=== PATIENT | male | born 1940 | race Caucasian/White ===

== ENCOUNTER 2021-10-16 10:25 | Emergency (ER) | payer MEDICARE, OTHER ==
[~2021-10-16 10:25] MED LIST: Sodium Chloride 0.9% 100 ML BAG ONE
[2021-10-16 11:31] LABS: ALT (SGPT) 39 U/L (8-55); AST (SGOT) 25 U/L (5-34); Albumin 4.1 g/dL (3.4-4.8); Alkaline Phosphatase 84 U/L (40-110); Anion Gap 12 mmol/L (10-20); BUN (Urea Nitrogen) 19 mg/dL (8.4-25.7); Bilirubin, Total 0.5 mg/dL (0.2-1.2); Calc. Creatinine Clearance 0 mL/min (70-130); Calcium 8.8 mg/dL (7.8-10.44); Carbon Dioxide 27 mmol/L (23-31); Chloride 105 mmol/L (98-107); Globulin 2.9 g/dL (2.4-3.5); Glucose 90 mg/dL (83-110); Magnesium 1.8 mg/dL (1.6-2.6); Potassium 4.1 mmol/L (3.5-5.1); Sodium 140 mmol/L (136-145)
[2021-10-16 11:32] LABS: Band 8 % (5-11); Eosinophils 2 % (0-10); Hemoglobin 14.9 g/dL (14.0-18.0); Lymphocytes 20 % (21-51); MDiff Complete? YES; Mean Corpuscular HGB CONC 32.2 g/dL (32.0-36.0); Mean Corpuscular Hemoglobin 29.1 pg (27.0-31.0); Mean Corpuscular Volume 90.4 fL (78.0-98.0); Monocytes 21 % (0-10); Neutrophil 49 % (42-75); Nucleated RBC 1 % (0); Platelet Count 137 thou/uL (130-400); Platelet Morphology Comment Appears Adequate; RBC Distribution Width 13.1 % (11.5-14.5); RBC Morphology Normal; Red Blood Cell (RBC) Count 5.14 mill/uL (4.70-6.10)
[2021-10-16] MEDS ORDERED: Iopamidol 370 76% 125 ML VIAL FS ONE (11:55)
[2021-10-16] MEDS ORDERED: Aspirin 325 MG TAB ONE (13:07)
== END 2021-10-16 13:20 | disposition home or self-care (01) ==
LOC: MADERS 10:25
DX: G45.9 Transient cerebral ischemic attack, unspecified (principal); E78.5 Hyperlipidemia, unspecified; I10 Essential (primary) hypertension
CPT/HCPCS: 70450; 70496; 70498; 71045; 80053; 83735; 84484; 85025; 93005; J3490; Q9967